=== PATIENT | female | born 1995 | race Caucasian/White ===

== ENCOUNTER → 2020-11-18 | Outpatient (CLI) | payer BC | LOC: EXRD 10:37 | DX: K21.9 Gastro-esophageal reflux disease without esophagitis (principal); R11.0 Nausea; R07.9 Chest pain, unspecified; R06.02 Shortness of breath | CPT/HCPCS: 71046 ==

== ENCOUNTER → 2020-12-02 | Outpatient (CLI) | payer BC | LOC: EXRD 11-30 10:30 | DX: R00.2 Palpitations (principal); R00.0 Tachycardia, unspecified; R55 Syncope and collapse; Z86.79 Personal history of other diseases of the circulatory system ==

== ENCOUNTER 2021-02-03 11:03 | Emergency (ER) | payer BC ==
[2021-02-03 11:59] LABS: HEMOGLOBIN 14.4 gm/dl (12.3-15.3); RED BLOOD COUNT 5.12 M/UL (4.00-5.10); WHITE BLOOD COUNT 11.2 K/UL (4.5-11.0)
[2021-02-03 12:32] LABS: BUN/CREATININE RATIO 10 (0-10)
[2021-02-03] MEDS ORDERED: IBUPROFEN600 MG PO (13:13)
== END 2021-02-03 14:11 | disposition home or self-care (01) ==
LOC: ER1 11:03
PROVIDERS: Family Medicine
DX: R07.89 Other chest pain (principal); R10.11 Right upper quadrant pain; E66.9 Obesity, unspecified
CPT/HCPCS: 71045; 80053; 81001; 82150; 82550; 82553; 83690; 83874; 84484; 84703; 85025; 93005; 96374; 96375; 99285; J1885; J2405

== ENCOUNTER → 2021-02-10 | Outpatient (CLI) | payer BC ==
[~2021-02-10] MED LIST: IBUPROFEN600 MG PO
== END ==
LOC: US 09:10
DX: R10.11 Right upper quadrant pain (principal)
CPT/HCPCS: 76705

== ENCOUNTER → 2021-03-03 | Outpatient (CLI) | payer BC | LOC: NM 09:34 | DX: R10.11 Right upper quadrant pain (principal); R11.2 Nausea with vomiting, unspecified | CPT/HCPCS: 78227; A9537; J2805 ==